=== PATIENT | female | born 1995 | race Caucasian/White ===

== ENCOUNTER 2025-05-16 14:17 | Emergency (ER) | payer OTHER, SELFPAY ==
[2025-05-16 14:18] VITALS: BP 127/82; PULSE 79; RESP 18; TEMP 36.6; O2SAT 99; BMI 37.8
--- NOTE | 2025-05-16 15:01 | EX.ED.DYSGE1 ---
HPI History of Present Illness Chief Complaint: Rash Narrative Narrative: Patient is a 29-year-old female with no known significant past medical history who presented to the emergency department chief complaint of rash. States that last Friday she developed to the rash on her face and notes that it has progressively worsening. States that she has been taking Benadryl, Pepcid, Shayy, acyclovir as she does have herpes. She states that on she went to urgent care they gave her a shot of steroid she does not know the name of this and states that did not help much. States that she feels like the rash is still worsening prompting her to come here for further evaluation management. States that the rash on the right side of her neck has worsened. Patient denies any issues with bleeding. Patient states that she has been eating and drinking without any difficulty. No fevers. Patient states that on Friday she did pull weeds at her house. She states that she does not believe that this was poison oak or britney but knows note that the rash is very itchy PFSH PFSH Home Medications ?Medication ?Instructions ?Recorded ?Last Taken ?Type Ibuprofen [Motrin] 800 mg PO Q12H PRN PRN Pain 06/08/16 Unknown History methylprednisolone 4 mg tablets in See Rx Instructions PO .COMPLEX 05/16/25 Unknown Rx a dose pack #21 tabs Allergy/AdvReac Type Severity Reaction Status Date / Time No Known Allergies Allergy Verified 05/16/25 14:20 Social History Smoking Status: Never smoker ROS ROS ED ROS Narrative Constitutional: Denies any fevers or chills, headaches, lightheadedness or dizziness Eyes: Denies change in vision Cardiovascular: Denies chest pain Respiratory: Denies shortness of breath Abdomen: Denies nausea vomit diarrhea Neurological: Denies any numbness, wheeze, tingling Musculoskeletal: Denies back pain Skin: Complains of rash as noted above EXAM Physical Exam Narrative Exam Narrative: General: Patient sitting in chair in hallway resting comfortably did not appear to be in acute distress Head: Atraumatic, normocephalic Eyes, ears, nose, throat: PERRL bilaterally, EOMI blood, no conjunctival injection noted, no intraoral lesions noted Neck: Soft, supple, trachea midline Cardiovascular: Regular rate and rhythm Respiratory: Clear to auscultation bilaterally Extremities: +5/5 strength noted in the bilateral upper and lower extremities Neurological: Patient follow commands knew that she was at [facility] year is 2024 Skin: Warm, dry, patient has a blanching rash noted on her face and the right side of her neck. The rash on the right side of her neck is darker in nature when compared to the rash on her face. No petechia no purpura no sloughing of the skin noted Const Vital Signs: 05/16/25 14:18 Temperature 97.9 F Temperature Source Oral Pulse Rate 79 Respiratory Rate 18 Blood Pressure 127/82 H Blood Pressure Mean 97 Pulse Ox 99 Oxygen Delivery Method Room Air MDM MDM MDM Narrative Medical decision making narrative: Patient is a 29-year-old female who presents to the emergency department with a chief complaint of rash. On the differential diagnosis includes but limited to contact dermatitis secondary to poison britney, poison oak, cellulitis but this does not appear cellulitic in nature. Once workup is obtained reviewed she will be reevaluated. Patient states that she has not changed anything in her life nor has she changed soaps or other items of this nature. Patient CBC reviewed and showed no evidence leukocytosis white blood count was normal at 9.6, he was 13.1, plate count was normal at 287. Patient coagulation studies were normal with an INR normal at 1 and a PT normal at 13.5. Patient sodium normal 142, calcium normal 4, creatinine normal at 0.90. Patient AST and ALT were normal at 17 and 15 respectively. Discussed this results with the patient and she would like to go home at this point time. Patient will be placed on steroid taper. She is advised to follow-up with her primary care physician outpatient setting return with worsening symptoms or any other concerns. She is agreeable this plan all questions were answered she was discharged home in stable condition. Lab Data Labs: Laboratory Results - last 24 hr 05/16/25 15:36 WBC 9.6 RBC 4.63 Hgb 13.1 Hct 39.7 MCV 85.7 MCH 28.3 MCHC 33.0 RDW Std Deviation 39.8 RDW Coeff of Ellen 12.8 Plt Count 287 MPV 10.2 Immature Gran % (Auto) 0.600 Neut % (Auto) 66.3 Lymph % (Auto) 26.7 Seneca % (Auto) 3.2 Eos % (Auto) 2.8 Baso % (Auto) 0.4 Absolute Neuts (auto) 6.4 Absolute Lymphs (auto) 2.56 Nucleated RBC % 0 PT 13.5 INR 1.0 APTT 28.5 Sodium 142 Potassium 4.0 Chloride 107 Carbon Dioxide 24.0 Anion Gap 12 BUN 13 Creatinine 0.90 Estim Creat Clear Calc 100.34 Est GFR (MDRD) Non-Af 87 BUN/Creatinine Ratio 14.1 Glucose 99 Calcium 9.4 Total Bilirubin 0.58 AST 17 ALT 15 Alkaline Phosphatase 58 Total Protein 7.1 Albumin 4.2 Globulin 2.9 Albumin/Globulin Ratio 1.5 Discharge Plan Triage Chief Complaint: Rash ED Provider: Luis Manuel Hernandez Dx/Rx/DC Orders Clinical Impression: Facial rash, History of herpes simplex infection Prescriptions: New methylprednisolone 4 mg tablets,dose pack See Rx Instructions .ROUTE .COMPLEX Qty: 21 0RF Rx Instructions: for 6 days No Action Ibuprofen [Motrin] 800 MG tablet 800 mg PO Q12H PRN PRN (Reason: Pain) Primary Care Provider: Care Physician,Ferannda Primary Referrals: Care Physician,No Primary [Primary Care Provider] - Lake Lee MD [Med Staff - Senior Physician] - Activity Restrictions/Additional Instructions: Follow-up your primary care physician outpatient setting. Take steroids as prescribed. Continue other medications that you are already taking. Your blood work did not show any acute findings. Return with worsening symptoms or any concerns Print Language: Estonian Disposition Disposition: Home, Self Care
[2025-05-16 15:57] LABS: Prothrombin Time (Protime)PT. 13.5 SECONDS (11.7-14.9)
[2025-05-16 15:58] LABS: Partial Thromboplast Time 28.5 Seconds (24.1-36.2)
[2025-05-16 15:59] LABS: Hematocrit 39.7 % (37-47); Hemoglobin 13.1 g/dL (12.0-15.0); Immature Granulocytes Count 0.060 X10^3/uL (0.0-0.0); Mean Corp Hgb Conc 33.0 g/dL (32-36); Mean Corpuscular Volume 85.7 fL (81-99); Mean Platelet Vol. 10.2 fl (6.2-12.0); NRBC Flagged by Analyzer 0 % (0-5); Platelet Count 287 K/mm3 (150-450); RBC Distribution Width CV 12.8 % (11.6-14.6); RBC Distribution Width SD 39.8 fl (35.1-43.9); Red Blood Count 4.63 M/mm3 (4.2-5.4); White Blood Count 9.6 K/mm3 (4.4-11.0)
[2025-05-16 16:03] LABS: AST(SGOT) 17 U/L (<=31); Alanine Aminotransfer ALT/SGPT 15 U/L (<=34); Albumin, Serum 4.2 g/dL (3.5-5.0); Alkaline Phosphatase 58 U/L (35-104); Anion Gap 12 (5-15); BUN 13 mg/dL (4-19); BUN/Creat Ratio 14.1 RATIO (10-20); Calcium,Total 9.4 mg/dL (7.6-11.0); Carbon Dioxide 24.0 mmol/L (21.0-32.0); Chloride 107 mmol/L (98-108); Estimated Creatinine Clearance 100.34 ml/min (50-250); Globulin 2.9 g/dL (2.2-4.2); Glucose 99 mg/dL (70-99); Potassium 4.0 mmol/L (3.3-5.1)
[2025-05-16 16:14] VITALS: BP 115/78; PULSE 89; RESP 14; TEMP 36.7; O2SAT 100
== END 2025-05-16 16:23 | disposition home or self-care (01) ==
PROVIDERS: Emergency Provider Emergency Medicine; Visit Provider Emergency Medicine
DX: R21 Rash and other nonspecific skin eruption (principal); Z86.19 Personal history of other infectious and parasitic diseases
CPT/HCPCS: 80053; 85025; 85610; 85730; 99282

== ENCOUNTER → 2025-05-19 | Outpatient (CLI) | payer OTHER, SELFPAY ==
[2025-05-23 14:08] LABS: Anti-dsDNA Ab <1 IU/mL (0-9)
== END | disposition home or self-care (01) ==
LOC: MTLAB 12:49
PROVIDERS: Referring Provider Dermatology; Visit Provider Dermatology
DX: L30.9 Dermatitis, unspecified (principal)
CPT/HCPCS: 36415; 86038; 86225